=== PATIENT | female | born 2000 | race African-American/Black ===

== ENCOUNTER 2021-10-07 11:44 | Emergency (ER) | payer MEDICAID ==
[~2021-10-07] VITALS: Ht 157.5 cm; Wt 57.0 kg
[2021-10-07 11:49] VITALS: BP 120/73
[2021-10-07] MEDS ORDERED: NORG1TAB70 MT (12:52)
== END 2021-10-07 13:16 | disposition home or self-care (01) ==
LOC: ER 11:44
DX: Z76.0 Encounter for issue of repeat prescription (principal); Z13.9 Encounter for screening, unspecified
CPT/HCPCS: 99281